=== PATIENT | female | born 1990 | race Caucasian/White ===

== ENCOUNTER 2021-03-05 21:40 | Emergency (ER) | payer MEDICARE, OTHER ==
[2021-03-05 21:45] VITALS: BP 111/75; PULSE 80; RESP 20; TEMP 98.9
[2021-03-05 22:19] LABS: Albumin 3.5 g/dL (3.5-5.0); Calcium 8.4 mg/dL (8.4-10.2); Potassium 3.8 mmol/L (3.5-5.1); Total Bilirubin 0.2 mg/dL (0.2-1.3); Total Protein 6.4 g/dL (6.3-8.2)
[2021-03-05 22:22] LABS: Basophils % (A) 0 %; Eosinophils % (A) 0 %; HCT 40.6 % (34.0-46.0); HGB 13.6 gm/dL (11.4-16.0); Lymphocytes # (A) 1.1 k/uL (1.0-4.8); Lymphocytes % (A) 27 %; MCH 32.6 pg (25.0-35.0); MCHC 33.4 g/dL (31.0-37.0); MCV 97.7 fL (80.0-100.0); Mean Platelet Volume 9.1; Monocytes # (A) 0.4 k/uL (0-1.0); Monocytes % (A) 11 %; Neutrophils # (A) 2.3 k/uL (1.3-7.7); Neutrophils % (A) 58 %; Platelet Count 113 k/uL (150-450); RBC 4.16 m/uL (3.80-5.40); RDW 12.8 % (11.5-15.5); WBC 3.9 k/uL (3.8-10.6)
[2021-03-05 22:38] LABS: INR 1.1 (<1.2); Partial Thromboplastin Time 25.7 sec (22.0-30.0); Prothrombin Time 11.2 sec (9.0-12.0)
[2021-03-05] MEDS ORDERED: DEXAMETHASONE SOD PHOSPHATE 10 MG/ML 1 ML VIAL IVP STA (23:30)
[2021-03-05] MEDS ORDERED: SODIUM CHLORIDE 0.9% 1,000 ML IV SCH (23:30)
[2021-03-05] MEDS ORDERED: SODIUM CHLORIDE 0.9% 1,000 ML IV STA (23:30)
[2021-03-05] MEDS ORDERED: KETOROLAC 15 MG/ML 1 ML VIAL IVP STA (23:30)
[2021-03-05] MEDS ORDERED: ONDANSETRON 4 MG/2 ML VIAL IVP STA (23:31)
--- NOTE | 2021-03-05 23:31 | ED ---
Syncope HPI - General Chief Complaint: Syncope Stated Complaint: Seizure Source: family, RN notes reviewed, old records reviewed Mode of arrival: wheelchair Limitations: no limitations - History of Present Illness Initial Comments: This is a 30-year-old female to the emergency department for evaluation today. Patient is a syncopal episode does have history of seizure. Patient herself has no current complaints mother was mainly concerned about the seizure versus syncopal event that she had. No change in medications she does have sick contacts. Parents with both coronavirus recently. No other complaints MD Complaint: loss of consciousness, collapsed, other (Syncopal episode occurred in the shower) -: hour(s) Prodromal Symptoms: none Description of Event: other (Patient return to normalcy quickly after passing out) -: second(s) Witnessed: yes - by bystander Injuries Sustained Associated with Event: None Current Symptoms: back to baseline History: seizure disorder Context: at rest Treatments Prior to Arrival: none - Related Data Allergies Allergy/AdvReac Type Severity Reaction Status Date / Time Penicillins Allergy Unknown Verified 03/05/21 21:41 Review of Systems ROS Statement: Those systems with pertinent positive or pertinent negative responses have been documented in the HPI. ROS Other: All systems not noted in ROS Statement are negative. Past Medical History Past Medical History: Seizure Disorder, Thyroid Disorder History of Any Multi-Drug Resistant Organisms: None Reported Past Surgical History: No Surgical Hx Reported Past Psychological History: No Psychological Hx Reported Smoking Status: Never smoker Past Alcohol Use History: None Reported Past Drug Use History: None Reported General Exam Limitations: no limitations General appearance: alert, in no apparent distress Head exam: Present: atraumatic, normocephalic, normal inspection Eye exam: Present: normal appearance, PERRL, EOMI. Absent: scleral icterus, conjunctival injection, periorbital swelling ENT exam: Present: normal exam, mucous membranes moist Neck exam: Present: normal inspection. Absent: tenderness, meningismus, lymphadenopathy Respiratory exam: Present: normal lung sounds bilaterally. Absent: respiratory distress, wheezes, rales, rhonchi, stridor Cardiovascular Exam: Present: regular rate, normal rhythm, normal heart sounds. Absent: systolic murmur, diastolic murmur, rubs, gallop, clicks GI/Abdominal exam: Present: soft, normal bowel sounds. Absent: distended, tenderness, guarding, rebound, rigid Extremities exam: Present: normal inspection, full ROM, normal capillary refill. Absent: tenderness, pedal edema, joint swelling, calf tenderness Back exam: Present: normal inspection Neurological exam: Present: alert, oriented X3, CN II-XII intact Psychiatric exam: Present: normal affect, normal mood Skin exam: Present: warm, dry, intact, normal color. Absent: rash Course Vital Signs 03/05/21 21:41 Temperature 98.9 F Pulse Rate 80 Respiratory 20 Rate Blood Pressure 111/75 O2 Sat by Pulse 99 Oximetry - Reevaluation(s) Reevaluation #1: 03/06/21 01:20 Record is reviewed Reevaluation #2: 03/06/21 01:20 No current complaints Reevaluation #3: 03/06/21 01:20 Patient informed of coronavirus positive test, feeling better here in the emergency department Reevaluation #4: 03/06/21 01:20 Patient family informed of results and questions answered okay for discharge EKG Findings - EKG Comments: EKG Findings:: EKG shows sinus rhythm 81 AK 142 QRS 74 QTC 418 Medical Decision Making - Medical Decision Making 30 female DF for evaluation of a syncopal event, patient is positive with coronavirus. Negative for PE and patient can be discharged home - Lab Data Result diagrams: 03/05/21 21:53 03/05/21 21:53 Lab Results 03/05/21 03/05/21 03/05/21 Range/Units 21:53 21:53 21:53 WBC 3.9 (3.8-10.6) k/uL RBC 4.16 (3.80-5.40) m/uL Hgb 13.6 (11.4-16.0) gm/dL Hct 40.6 (34.0-46.0) % MCV 97.7 (80.0-100.0) fL MCH 32.6 (25.0-35.0) pg MCHC 33.4 (31.0-37.0) g/dL RDW 12.8 (11.5-15.5) % Plt Count 113 L (150-450) k/uL MPV 9.1 Neutrophils % 58 % Lymphocytes % 27 % Monocytes % 11 % Eosinophils % 0 % Basophils % 0 % Neutrophils # 2.3 (1.3-7.7) k/uL Lymphocytes # 1.1 (1.0-4.8) k/uL Monocytes # 0.4 (0-1.0) k/uL Eosinophils # 0.0 (0-0.7) k/uL Basophils # 0.0 (0-0.2) k/uL PT 11.2 (9.0-12.0) sec INR 1.1 (<1.2) APTT 25.7 (22.0-30.0) sec Sodium 133 L (137-145) mmol/L Potassium 3.8 (3.5-5.1) mmol/L Chloride 97 L (98-107) mmol/L Carbon Dioxide 25 (22-30) mmol/L Anion Gap 11 mmol/L BUN 13 (7-17) mg/dL Creatinine 0.98 (0.52-1.04) mg/dL Est GFR (CKD-EPI)AfAm 88 (>60 ml/min/1.73 sqM) Est GFR (CKD-EPI)NonAf 77 (>60 ml/min/1.73 sqM) Glucose 129 H (74-99) mg/dL Calcium 8.4 (8.4-10.2) mg/dL Total Bilirubin 0.2 (0.2-1.3) mg/dL AST 25 (14-36) U/L ALT 12 (4-34) U/L Alkaline Phosphatase 49 (38-126) U/L Lactate Dehydrogenase (313-618) U/L Troponin I (0.000-0.034) ng/mL C-Reactive Protein (<1.0) mg/dL Total Protein 6.4 (6.3-8.2) g/dL Albumin 3.5 (3.5-5.0) g/dL Valproic Acid ug/mL Coronavirus (PCR) (Not Detectd) 03/05/21 03/05/21 03/05/21 Range/Units 21:53 21:53 23:30 WBC (3.8-10.6) k/uL RBC (3.80-5.40) m/uL Hgb (11.4-16.0) gm/dL Hct (34.0-46.0) % MCV (80.0-100.0) fL MCH (25.0-35.0) pg MCHC (31.0-37.0) g/dL RDW (11.5-15.5) % Plt Count (150-450) k/uL MPV Neutrophils % % Lymphocytes % % Monocytes % % Eosinophils % % Basophils % % Neutrophils # (1.3-7.7) k/uL Lymphocytes # (1.0-4.8) k/uL Monocytes # (0-1.0) k/uL Eosinophils # (0-0.7) k/uL Basophils # (0-0.2) k/uL PT (9.0-12.0) sec INR (<1.2) APTT (22.0-30.0) sec Sodium (137-145) mmol/L Potassium (3.5-5.1) mmol/L Chloride (98-107) mmol/L Carbon Dioxide (22-30) mmol/L Anion Gap mmol/L BUN (7-17) mg/dL Creatinine (0.52-1.04) mg/dL Est GFR (CKD-EPI)AfAm (>60 ml/min/1.73 sqM) Est GFR (CKD-EPI)NonAf (>60 ml/min/1.73 sqM) Glucose (74-99) mg/dL Calcium (8.4-10.2) mg/dL Total Bilirubin (0.2-1.3) mg/dL AST (14-36) U/L ALT (4-34) U/L Alkaline Phosphatase (38-126) U/L Lactate Dehydrogenase 343 (313-618) U/L Troponin I <0.012 (0.000-0.034) ng/mL C-Reactive Protein 0.8 (<1.0) mg/dL Total Protein (6.3-8.2) g/dL Albumin (3.5-5.0) g/dL Valproic Acid ug/mL Coronavirus (PCR) Detected A (Not Detectd) 03/06/21 Range/Units 00:57 WBC (3.8-10.6) k/uL RBC (3.80-5.40) m/uL Hgb (11.4-16.0) gm/dL Hct (34.0-46.0) % MCV (80.0-100.0) fL MCH (25.0-35.0) pg MCHC (31.0-37.0) g/dL RDW (11.5-15.5) % Plt Count (150-450) k/uL MPV Neutrophils % % Lymphocytes % % Monocytes % % Eosinophils % % Basophils % % Neutrophils # (1.3-7.7) k/uL Lymphocytes # (1.0-4.8) k/uL Monocytes # (0-1.0) k/uL Eosinophils # (0-0.7) k/uL Basophils # (0-0.2) k/uL PT (9.0-12.0) sec INR (<1.2) APTT (22.0-30.0) sec Sodium (137-145) mmol/L Potassium (3.5-5.1) mmol/L Chloride (98-107) mmol/L Carbon Dioxide (22-30) mmol/L Anion Gap mmol/L BUN (7-17) mg/dL Creatinine (0.52-1.04) mg/dL Est GFR (CKD-EPI)AfAm (>60 ml/min/1.73 sqM) Est GFR (CKD-EPI)NonAf (>60 ml/min/1.73 sqM) Glucose (74-99) mg/dL Calcium (8.4-10.2) mg/dL Total Bilirubin (0.2-1.3) mg/dL AST (14-36) U/L ALT (4-34) U/L Alkaline Phosphatase (38-126) U/L Lactate Dehydrogenase (313-618) U/L Troponin I (0.000-0.034) ng/mL C-Reactive Protein (<1.0) mg/dL Total Protein (6.3-8.2) g/dL Albumin (3.5-5.0) g/dL Valproic Acid 69.6 ug/mL Coronavirus (PCR) (Not Detectd) - Radiology Data Radiology results: report reviewed (CT chest is negative for PE), image reviewed Disposition Clinical Impression: Vasovagal syncope, Coronavirus infection Disposition: HOME SELF-CARE Condition: Good Instructions (If sedation given, give patient instructions): Coronavirus Disease 2019 (COVID-19) Is patient prescribed a controlled substance at d/c from ED?: No Referrals: Latoya Stover MD [Primary Care Provider] - 1-2 days
--- NOTE | 2021-03-06 00:12 | CT ---
EXAMINATION TYPE: CT angio chest DATE OF EXAM: 03/05/2021 COMPARISON: None HISTORY: R/O PE Chest pain CT DLP: 209.1 mGycm Automated exposure control for dose reduction was used. CONTRAST: Performed with IV Contrast, patient injected with 50 mL of Isovue 370. Images obtained from the thoracic inlet to the diaphragm with IV contrast. There are Three-D postproc essed images. Lung bases are clear but there is no pleural effusion. Heart size is normal. There is no pericardial effusion. The lungs are clear of infiltrate. There is no evidence of a pulmonary mass. Mediastinum is normal. T horacic aorta is intact. There are no hilar masses. There is no evidence of thoracic aortic aneurysm or dissection. There is normal contrast opacification of the pulmonary arteries. There are no filling defects. There is intact thoracic spine. There is no compression fracture. Sternum is intact. There is a slight tho racic dextroscoliosis. IMPRESSION: Negative exam. No evidence of pulmonary embolism.
[2021-03-06 01:13] LABS: C Reactive Protein 0.8 mg/dL (<1.0)
== END 2021-03-06 01:15 | disposition home or self-care (01) ==
LOC: EEVIPCON 21:40 → EC 21:40
DX: U07.1 COVID-19 (principal); R55 Syncope and collapse; Z88.0 Allergy status to penicillin
CPT/HCPCS: 36415; 93005; 80164; 80053; 83615; 84484; 85025; 85610; 85730; 86140; 87635; 71275; 99284; 96374; 96375; 96361; J1100; J2405; J1885; Q9967